=== PATIENT | female | born 1990 | race Caucasian/White ===

== ENCOUNTER 2018-07-06 10:02 | Emergency (ER) | payer BC ==
[~2018-07-06] VITALS: Ht 160 cm; Wt 91.0 kg
[2018-07-06 11:20] LABS: CLARITY URINE CLOUDY (CLEAR); COLOR URINE YELLOW (YELLOW); KETONES URINE NEGATIVE (NEGATIVE); LEUKOCYTE ESTERASE URINE TRACE (NEGATIVE); NITRITE URINE NEGATIVE (NEGATIVE); OCCULT BLOOD URINE NEGATIVE (NEGATIVE); PH URINE 7.5 (4.5-8.0); PROTEIN URINE NEGATIVE (NEGATIVE); UROBILINOGEN URINE 0.2 E.U./dL (0.2-1.0)
[2018-07-06 11:22] LABS: BASOPHILS % 0.8 % (0.0-2.0); EOSINOPHILS % 2.5 % (0.0-5.0); HEMATOCRIT. 40.4 % (36.0-48.0); HEMOGLOBIN. 13.4 g/dL (12.0-16.0); LYMPHOCYTES % 24.8 % (20.0-50.0); MEAN CORPUSCULAR HEMOGLOBIN 26.7 pg (28.0-32.0); MEAN CORPUSCULAR VOLUME 80.9 fL (81.0-99.0); MEAN PLATELET VOLUME 7.5 fl (7.4-10.4); MONOCYTES % 6.6 % (2.0-8.0); NEUTROPHILS % 65.3 % (40.0-76.0); PLATELET 352 x1000/uL (130-400); RED CELL DISTRIBUTION WIDTH 14.5 % (11.6-14.6)
[2018-07-06 11:29] LABS: CHLORIDE 107 mEq/L (98-107)
[2018-07-06 11:39] LABS: B-HCG QUANTITATIVE < 1 mIU/mL (<3)
[2018-07-06] MEDS ORDERED: KETOROLAC 30MG/ML VIAL IV ONE (12:30)
[2018-07-06 13:03] VITALS: BP 140/94
== END 2018-07-06 13:11 | disposition home or self-care (01) ==
LOC: ER 10:02
DX: D25.9 Leiomyoma of uterus, unspecified (principal); N39.0 Urinary tract infection, site not specified
CPT/HCPCS: 36415; 76830; 76856; 80053; 81003; 81025; 84702; 85025; 86850; 86900; 86901; 96374; 99284; J1885

== ENCOUNTER 2019-01-22 20:11 | Emergency (ER) | payer BC, MEDICAID ==
[~2019-01-22] VITALS: Ht 160 cm; Wt 93.0 kg
[2019-01-22] MEDS ORDERED: IBUPROFEN 600MG TABLET PO ONE (23:00)
[2019-01-22 23:38] LABS: BASOPHILS % 0.6 % (0.0-2.0); EOSINOPHILS % 2.9 % (0.0-5.0); HEMATOCRIT. 36.5 % (36.0-48.0); LYMPHOCYTES % 28.5 % (20.0-50.0); MEAN CORPUSCULAR HEMOGLOBIN 26.4 pg (28.0-32.0); MEAN CORPUSCULAR VOLUME 80.1 fL (81.0-99.0); MEAN PLATELET VOLUME 7.8 fl (7.4-10.4); MONOCYTES % 6.5 % (2.0-8.0); NEUTROPHILS % 61.5 % (40.0-76.0); PLATELET 348 x1000/uL (130-400); RED BLOOD CELL COUNT 4.55 mill/uL (4.2-5.4); RED CELL DISTRIBUTION WIDTH 14.2 % (11.6-14.6)
[2019-01-22 23:44] LABS: CHLORIDE 108 mEq/L (98-107)
[2019-01-23] MEDS ORDERED: HYDROCODONE/ACETAMINOPHEN 5/325MG TABLET PO ONE (00:15)
[2019-01-23] MEDS ORDERED: GABAPENTIN 300MG CAPSULE PO ONE (00:15)
[2019-01-23 03:02] VITALS: BP 119/79
== END 2019-01-23 03:08 | disposition home or self-care (01) ==
LOC: ER 20:11
DX: R07.89 Other chest pain (principal); M79.602 Pain in left arm; R20.0 Anesthesia of skin
CPT/HCPCS: 36415; 71045; 81025; 83880; 84484; 85379; 93005; 99284

== ENCOUNTER 2019-10-06 14:34 | Emergency (ER) | payer MEDICAID ==
[~2019-10-06] VITALS: Ht 162.6 cm; Wt 100.0 kg
[2019-10-06] MEDS ORDERED: KETOROLAC 60MG/2ML VIAL IM STA (17:00)
[2019-10-06] MEDS ORDERED: HYDROCODONE/ACETAMINOPHEN 5/325MG TABLET PO ONE (17:15)
[2019-10-06 17:44] VITALS: BP 147/92
== END 2019-10-06 17:46 | disposition home or self-care (01) ==
LOC: ER 14:34
DX: R51 Headache (principal)
CPT/HCPCS: 99283; J1885

== ENCOUNTER 2020-05-03 00:36 | Emergency (ER) | payer MEDICAID, OTHER ==
[~2020-05-03] VITALS: Ht 162.6 cm; Wt 105.0 kg
[2020-05-03] MEDS ORDERED: KETOROLAC 60MG/2ML VIAL IM ONE (01:15)
[2020-05-03] MEDS ORDERED: PROCHLORPERAZINE 10MG/2ML VIAL IM ONE (01:15)
[2020-05-03] MEDS ORDERED: DIPHENHYDRAMINE 25MG CAPSULE PO ONE (01:15)
[2020-05-03 03:39] VITALS: BP 117/79
== END 2020-05-03 04:05 | disposition home or self-care (01) ==
LOC: ER 00:36
DX: G44.221 Chronic tension-type headache, intractable (principal); I10 Essential (primary) hypertension
CPT/HCPCS: 96372; 99284; J0780; J1885; Q0163

== ENCOUNTER 2020-05-05 22:52 | Emergency (ER) | payer OTHER ==
[~2020-05-05] VITALS: Ht 160 cm; Wt 98.0 kg
[2020-05-06 00:01] VITALS: BP 132/86
== END 2020-05-06 00:04 | disposition home or self-care (01) ==
LOC: ER 22:52
DX: R51.9 Headache, unspecified (principal); R07.89 Other chest pain
CPT/HCPCS: 93005; 99283

== ENCOUNTER 2021-10-15 23:56 | Emergency (ER) | payer MEDICAID, OTHER ==
[~2021-10-15] VITALS: Ht 162.6 cm; Wt 101.8 kg
[2021-10-16 03:46] VITALS: BP 108/75
== END 2021-10-16 03:46 | disposition home or self-care (01) ==
LOC: ER 23:56
DX: R59.0 Localized enlarged lymph nodes (principal); K02.9 Dental caries, unspecified; R03.0 Elevated blood-pressure reading, without diagnosis of hypertension; Z98.890 Other specified postprocedural states
CPT/HCPCS: 99281

== ENCOUNTER 2021-10-24 09:45 | Emergency (ER) | payer OTHER ==
[~2021-10-24] VITALS: Ht 162.6 cm; Wt 101.0 kg
[2021-10-24 11:20] LABS: BASOPHILS % 0.8 % (0.0-2.0); EOSINOPHILS % 2.6 % (0.0-5.0); HEMATOCRIT. 38.4 % (36.0-48.0); HEMOGLOBIN. 12.5 g/dL (12.0-16.0); LYMPHOCYTES % 21.7 % (20.0-50.0); MEAN CORPUSCULAR HEMOGLOBIN 24.7 pg (28.0-32.0); MEAN CORPUSCULAR VOLUME 75.8 fL (81.0-99.0); MEAN PLATELET VOLUME 7.6 fl (7.4-10.4); MONOCYTES % 5.1 % (2.0-8.0); NEUTROPHILS % 69.8 % (40.0-76.0); PLATELET 404 x1000/uL (130-400); RED BLOOD CELL COUNT 5.07 mill/uL (4.2-5.4); RED CELL DISTRIBUTION WIDTH 15.5 % (11.6-14.6)
[2021-10-24 11:30] LABS: CHLORIDE 107 mEq/L (98-107)
[2021-10-24] MEDS ORDERED: ACETAMINOPHEN 325MG TABLET PO ONE (15:45)
[2021-10-24] MEDS ORDERED: KETOROLAC 30MG/ML VIAL IV ONE (15:45)
[2021-10-24 16:13] VITALS: BP 148/85
== END 2021-10-24 16:14 | disposition home health service (06) ==
LOC: ER 09:45
DX: R07.89 Other chest pain (principal); I10 Essential (primary) hypertension; Z98.890 Other specified postprocedural states
CPT/HCPCS: 36415; 71045; 80053; 83880; 84484; 85025; 93005; 99285